=== PATIENT | female | born 1980 | race Caucasian/White ===

== ENCOUNTER 2020-02-16 16:11 | Inpatient (IN) | payer SELFPAY ==
[2020-02-16] VITALS (11 sets, daily range): BP systolic 138–290; BP diastolic 73–152; PULSE 86–139; RESP 12–19; TEMP 37.7; O2SAT 98–100; BMI 31.1
--- NOTE | 2020-02-16 16:35 | CT_ITS ---
CT head/brain wo con CLINICAL INFORMATION: Reason for Exam COYLE COMPARISON: No prior CT scan available for comparison. TECHNIQUE: Department standard protocol. This CT examination was performed using dose optimization techniques as appropriate, variously including the following: *Automated exposure control *Adjustment of mA and/or kV according to patient size (this includes techniques or standardized protocols for targeted exams where dose is matched to indication/reason for exam; i.e. extremities or head) *Use of iterative reconstruction technique DLP: 718 mGy-cm FINDINGS: CEREBRAL HEMISPHERES: There is no evidence of intra-axial or extra-axial mass, hemorrhage or acute infarct. BRAIN PARENCHYMA: Normal krueger-white matter differentiation. SUBDURAL SPACE: No bleed. BASAL GANGLIA AND PINEAL GLAND: Unremarkable VENTRICLES: Symmetric and normal in size. CEREBELLUM AND BRAINSTEM: No space-occupying mass, hemorrhage or acute infarct. CEREBELLOPONTINE ANGLES: No lesion found. ORBITS: No intraorbital mass. VESSELS: Unremarkable SKULL BASE: Unremarkable INCLUDED SINUSES AT SKULL BASE: Clear SKULL AND SKIN: No fracture or bone lesion found. CT/CT head/brain wo con IMPRESSION: No CT evidence of intracranial space-occupying mass, bleed or infarct.
[2020-02-16 16:41] LABS: MANUAL DIFF FLAG NO
[2020-02-16 16:42] LABS: Basophils Percent Auto 0.4 % (0-2); Eosinophils Absolute Auto 0.2 X10*3/uL (0.0-0.4); Hematocrit 43.2 % (37-47); Hemoglobin 13.9 g/dl (12.0-16.0); Imm Gran Abs Auto 0.04 X10*3/uL (0.00-0.03); Imm Gran Pct Auto 0.4 % (0.0-0.4); Lymphocytes Absolute Auto 2.5 X10*3/uL (1.2-4.9); Lymphocytes Percent Auto 24.5 % (20-40); Mean Corpuscular HGB Conc 32.2 g/dl (31.0-35.0); Mean Corpuscular Hemoglobin 26.3 pg (27.0-33.0); Mean Corpuscular Volume 81.7 fL (80-98); Mean Platelet Volume 8.7 fL (9.4-12.3); Monocytes Absolute Auto 0.6 X10*3/uL (0.1-1.2); Monocytes Percent Auto 6.2 % (2-11); Neutrophils Absolute Auto 6.8 X10*3/uL (2.0-8.3); Neutrophils Percent Auto 66.5 % (45-73); Platelet Count 400 X10*3/uL (160-400); Red Blood Count 5.29 X10*6/uL (4.20-5.50); Red Cell Distribution Width 14.3 % (11.0-16.0); White Blood Count 10.3 X10*3/uL (4.8-10.8)
[2020-02-16] MEDS: LORazepam 2 MG/ML VIAL 0.5 MG IVPUSH (16:44)
[2020-02-16] MEDS: Labetalol HCL 100 MG/20 ML VIAL 10 MG IVPUSH (16:44)
[2020-02-16] MEDS: 0.9 % Sodium Chloride 500 ML 1000 ML IV (16:45)
--- NOTE | 2020-02-16 16:46 | ED.GENADULT ---
HPI - General Adult General Chief complaint: Arrhythmia/Palpitations Stated complaint: hbp Time Seen by Provider: 02/16/20 16:34 Source: patient Mode of arrival: ambulatory Limitations: no limitations History of Present Illness HPI narrative: this 39-year-old female with history of hypertension in the past she was on multi agent therapy with lisinopril, amlodipine and metoprolol she reports to me that about a year ago she stopped taking it as she had been in between primary care and did not fill her prescriptions she is also in the meantime has been trying to lose a bit of weight and has been exercising she presents today with complaint of slight headache and feeling off states she checked her blood pressure at home was elevated prompting her to come to the emergency room. Aside from this slight headaches she denies any chest pain or shortness of breath. No recent illness. No weight gain or loss. No recent travel. No lower extremity pain. No vision changes. No dizziness. Location: head Radiation: non-radiation Severity: mild Quality: aching Pain Consistency: constant Relieving factors: none Exacerbating factors: none Treatments prior to arrival: none Related Data Home Medications Medication Instructions Recorded Confirmed Hair,Skin and Nails 1 tab PO DAILY 02/16/20 02/16/20 Allergies Allergy/AdvReac Type Severity Reaction Status Date / Time No Known Allergies Allergy Verified 02/16/20 16:34 Review of Systems Review of Systems: Constitutional: No Weight loss, No Fever, No Chills, No Night Sweats, No Fatigue, No Malaise ENT/Mouth: No Hearing loss, No Ear Pain, No Nasal Congestion, No Sinus Pain, No Hoarseness, No sore throat, No Rhinorrhea, No Swallowing Difficulty Eyes: No Eye Pain, No Swelling, No Redness, No Foreign Body, No Discharge, No Vision Changes Cardiovascular: No Chest Pain, No SOB, No Dyspnea on Exertion, No Orthopnea, No Edema, No Palpitations Respiratory: No Cough, No Sputum, No Wheezing, No Smoke Exposure, No Dyspnea Gastrointestinal: No Nausea, No Vomiting, No Diarrhea, No Constipation, No abdominal Pain, No Hematochezia, No Melena Genitourinary: no irregular bleeding, No Dysuria, No Urinary Frequency, No Hematuria, No Urinary Incontinence, No Urgency, No Flank Pain, No Urinary Flow Changes, No Hesitancy Musculoskeletal: No joint pain, No Myalgias, No Joint Swelling Skin: No Skin Lesions, No rash Neuro: No Weakness, No Numbness, No Paresthesias, No Loss of Consciousness, No Dizziness, + Headache Psych: No Social Issues Heme/Lymph: No Bruising, No Bleeding,No Lymphadenopathy Endocrine: No Polyuria, No Polydipsia, No Temperature Intolerance Yes all other systems are reviewed and are negative [facility] Past Medical History Attestation statement: The following information was validated with the patient. Medical History (Updated 02/16/20 @ 21:28 by Hai White NP) Hypertension Social History Social History Smoked in Last 30 Days: No Use of substances other than those prescribed or required for medical reasons: No Advance Directives: No Advance Directives Information Provided: Yes Physical Exam Vital Signs: Vital Signs: Vital Signs Temp Pulse Resp BP Pulse Ox 02/16/20 20:00 112 H 15 199/124 H 98 02/16/20 19:36 95 239/151 H 02/16/20 18:58 96 243/141 H 02/16/20 18:57 92 243/141 H 02/16/20 18:05 100 249/130 H 02/16/20 17:26 94 217/113 H 100 02/16/20 16:58 234/140 H 02/16/20 16:52 94 12 244/142 H 02/16/20 16:44 99 240/137 H 02/16/20 16:13 99.9 F 139 H 19 290/152 H 100 Body Mass Index 31.1 Reviewed Course Course Course Narrative: a 39-year-old female with history of hypertension presenting with hypertensive crisis blood pressure 290/152 HR 115- does report history of hypertension has not been taking her blood pressure medications for little over a year as she is in between primary care's and has been trying to diet and exercise. Feeling slight headache for past couple days and feeling off check her blood pressure high at home. On arrival no focal neurological deficits. She does report that she has slight white coat syndrome and this could be the reason why blood pressure is more elevated now. Will treat with gradual in fluids, lorazepam 0.5 mg IV and labetalol IV. Workup initiated. No recent illness. No signs or symptoms infectious pathology at this time. Reevaluation(s) Reevaluation #1: Blood pressure slightly however remains resistant given multiple rounds IV medications as well as p.o. clonidine. Attending consulted patient started on nicardipine drip. Will consult ICU. Have monitored patient very closely and have had multiple visits to bedside for cardiac monitoring, neurological monitoring and blood pressure management. Consultations Consultation #1: Intensive care Dr. Tavares Consultation #2: Hospitalist Dr. Laureano Medical Decision Making Differential Diagnosis Differential Diagnosis: Hypertensive crisis, intracranial bleed, electron injury, migraine COYLE Medical Records Medical records reviewed: Yes I reviewed the patient's medical records. Lab Data Result diagrams: 02/16/20 16:37 02/16/20 16:37 Labs: Lab Results 02/16/20 02/16/20 02/16/20 Range/Units 16:37 16:37 16:37 WBC 10.3 (4.8-10.8) X10*3/uL RBC 5.29 (4.20-5.50) X10*6/uL Hgb 13.9 (12.0-16.0) g/dl Hct 43.2 (37-47) % MCV 81.7 (80-98) fL MCH 26.3 L (27.0-33.0) pg MCHC 32.2 (31.0-35.0) g/dl RDW 14.3 (11.0-16.0) % Plt Count 400 (160-400) X10*3/uL MPV 8.7 L (9.4-12.3) fL Immature Gran % (Auto) 0.4 (0.0-0.4) % Neut % (Auto) 66.5 (45-73) % Lymph % (Auto) 24.5 (20-40) % [place] % (Auto) 6.2 (2-11) % Eos % (Auto) 2.0 (0-4) % Baso % (Auto) 0.4 (0-2) % Lymph # (Auto) 2.5 (1.2-4.9) X10*3/uL [place] # (Auto) 0.6 (0.1-1.2) X10*3/uL Eos # (Auto) 0.2 (0.0-0.4) X10*3/uL Baso # (Auto) 0.0 (0.0-0.2) X10*3/uL Abs Immat Gran (auto) 0.04 H (0.00-0.03) X10*3/uL Absolute Neuts (auto) 6.8 (2.0-8.3) X10*3/uL Absolute Nucleated RBC 0.000 (0.0-0.012) X10*3/uL Nucleated RBC % (auto) 0.0 (0.0-0.2) /100WBC Sodium 138 (135-145) mmol/L Potassium 4.1 (3.3-5.1) mmol/l Chloride 99 (96-108) mmol/L Carbon Dioxide 28 (22-29) mmol/L Anion Gap 15 (12-20) BUN 13 (9-16) mg/dL Creatinine 1.02 (0.5-1.4) mg/dL Estim Creat Clear Calc 68.5 Estimated GFR > 60 Random Glucose 127 H (60-115) mg/dL Calcium 9.9 (8.4-10.2) mg/dL Total Bilirubin 0.7 (0.0-1.0) mg/dL AST 23 (5-31) U/L ALT 29 (0-31) U/L Alkaline Phosphatase 57 (39-117) U/L Troponin I High Sens 8.1 (<3.5-17.0) ng/L Total Protein 8.1 H (6.5-8.0) g/dL Albumin 4.9 (3.5-5.0) g/dL Urine Color Urine Appearance Urine pH (5.0-8.0) Ur Specific [place] (1.005-1.025) Urine Protein (NEG-TRACE) MG/DL Urine Glucose (UA) (NEG) MG/DL Urine Ketones (NEG) MG/DL Urine Blood (NEG) Urine Nitrite (NEG) Ur Leukocyte Esterase (NEG) Urine RBC (0) /HPF Urine WBC (0-4) /HPF Ur Squamous Epith Cells /LPF Urine Bacteria /LPF Urine Test (NEGATIVE) Urine Opiates Screen (Not Detect) Ur Barbiturates Screen (Not Detect) Ur Phencyclidine Scrn (Not Detect) Ur Amphetamines Screen (Not Detect) U Benzodiazepines Scrn (Not Detect) Urine Cocaine Screen (Not Detect) U Marijuana (THC) Screen (Not Detect) 02/16/20 02/16/20 Range/Units 17:27 17:27 WBC (4.8-10.8) X10*3/uL RBC (4.20-5.50) X10*6/uL Hgb (12.0-16.0) g/dl Hct (37-47) % MCV (80-98) fL MCH (27.0-33.0) pg MCHC (31.0-35.0) g/dl RDW (11.0-16.0) % Plt Count (160-400) X10*3/uL MPV (9.4-12.3) fL Immature Gran % (Auto) (0.0-0.4) % Neut % (Auto) (45-73) % Lymph % (Auto) (20-40) % [place] % (Auto) (2-11) % Eos % (Auto) (0-4) % Baso % (Auto) (0-2) % Lymph # (Auto) (1.2-4.9) X10*3/uL [place] # (Auto) (0.1-1.2) X10*3/uL Eos # (Auto) (0.0-0.4) X10*3/uL Baso # (Auto) (0.0-0.2) X10*3/uL Abs Immat Gran (auto) (0.00-0.03) X10*3/uL Absolute Neuts (auto) (2.0-8.3) X10*3/uL Absolute Nucleated RBC (0.0-0.012) X10*3/uL Nucleated RBC % (auto) (0.0-0.2) /100WBC Sodium (135-145) mmol/L Potassium (3.3-5.1) mmol/l Chloride (96-108) mmol/L Carbon Dioxide (22-29) mmol/L Anion Gap (12-20) BUN (9-16) mg/dL Creatinine (0.5-1.4) mg/dL Estim Creat Clear Calc Estimated GFR Random Glucose (60-115) mg/dL Calcium (8.4-10.2) mg/dL Total Bilirubin (0.0-1.0) mg/dL AST (5-31) U/L ALT (0-31) U/L Alkaline Phosphatase (39-117) U/L Troponin I High Sens (<3.5-17.0) ng/L Total Protein (6.5-8.0) g/dL Albumin (3.5-5.0) g/dL Urine Color STRAW Urine Appearance CLEAR Urine pH 6.5 (5.0-8.0) Ur Specific [place] 1.010 (1.005-1.025) Urine Protein 2+ H (NEG-TRACE) MG/DL Urine Glucose (UA) NEG (NEG) MG/DL Urine Ketones NEG (NEG) MG/DL Urine Blood NEG (NEG) Urine Nitrite NEG (NEG) Ur Leukocyte Esterase NEG (NEG) Urine RBC 0 (0) /HPF Urine WBC 0 (0-4) /HPF Ur Squamous Epith Cells 1+ /LPF Urine Bacteria NONE /LPF Urine Test NEGATIVE (NEGATIVE) Urine Opiates Screen POSITIVE H (Not Detect) Ur Barbiturates Screen Not Detected (Not Detect) Ur Phencyclidine Scrn Not Detected (Not Detect) Ur Amphetamines Screen Not Detected (Not Detect) U Benzodiazepines Scrn Not Detected (Not Detect) Urine Cocaine Screen Not Detected (Not Detect) U Marijuana (THC) Screen Not Detected (Not Detect) Imaging Data CT scan - head: Attestation: I personally reviewed and interpreted this imaging study as follows: Radiologist's impression: Lurdes Patricia 39 F 1980 [place] [id number] [address] Scan Report Signed Patient: Lurdes PatriciaMR#: [id number] : 1980Acct:[id number] Age/Sex: 39 / FADM Date: 02/16/20 Loc: HO.ED Attending Dr: Ordering Physician: Hai White NP Date of Service: 02/16/20 Procedure(s): CT head/brain wo con Accession Number(s): [id number] cc: Hai White PARTS INTERPRETER~ CT head/brain wo con CLINICAL INFORMATION: Reason for Exam COYLE COMPARISON: No prior CT scan available for comparison. TECHNIQUE: Department standard protocol. This CT examination was performed using dose optimization techniques as appropriate, variously including the following: *Automated exposure control *Adjustment of mA and/or kV according to patient size (this includes techniques or standardized protocols for targeted exams where dose is matched to indication/reason for exam; i.e. extremities or head) *Use of iterative reconstruction technique DLP: 718 mGy-cm FINDINGS: CEREBRAL HEMISPHERES: There is no evidence of intra-axial or extra-axial mass, hemorrhage or acute infarct. BRAIN PARENCHYMA: Normal krueger-white matter differentiation. SUBDURAL SPACE: No bleed. BASAL GANGLIA AND PINEAL GLAND: Unremarkable VENTRICLES: Symmetric and normal in size. CEREBELLUM AND BRAINSTEM: No space-occupying mass, hemorrhage or acute infarct. CEREBELLOPONTINE ANGLES: No lesion found. ORBITS: No intraorbital mass. VESSELS: Unremarkable SKULL BASE: Unremarkable INCLUDED SINUSES AT SKULL BASE: Clear SKULL AND SKIN: No fracture or bone lesion found. CT/CT head/brain wo con IMPRESSION: No CT evidence of intracranial space-occupying mass, bleed or infarct. Dictated By:LUIGI GRIFFITH MD Signed By:<Electronically signed by LUIGI GRIFFITH MD in OV>02/16/20 1831 DD/ 1635 TD/TT: Mobile Device Engineer: ECG Data Interpretation: sinus tachycardia Heart rate 107 No ectopy Minimal voltage criteria for LVH No ST segment changes Critical Care Time Critical Care Time Critical Care Time: Yes Total Critical Care Time: 65 Attestation: hypertensive crisis symptomatic with slight headache requiring multiple visits to bedside including management with IV antihypertensive medications. Consultation with intensive care unit as well as hospitalist services. Discharge Plan Discharge Clinical Impression: Hypertensive crisis Patient Disposition: Admitted As Inpatient
[2020-02-16 17:16] LABS: Alanine Aminotransferase 29 U/L (0-31); Albumin Level 4.9 g/dL (3.5-5.0); Alkaline Phosphatase 57 U/L (39-117); Anion Gap 15 (12-20); Aspartate Amino Transferase 23 U/L (5-31); Bilirubin Total 0.7 mg/dL (0.0-1.0); Blood Urea Nitrogen 13 mg/dL (9-16); Calcium 9.9 mg/dL (8.4-10.2); Carbon Dioxide 28 mmol/L (22-29); Chloride 99 mmol/L (96-108); Creatinine Clr Calc Pharmacy 68.5; Estimated Glomerular Filt Rate > 60; Glucose Random 127 mg/dL (60-115); Potassium 4.1 mmol/l (3.3-5.1); Sodium 138 mmol/L (135-145); Total Protein 8.1 g/dL (6.5-8.0)
[2020-02-16 17:20] LABS: Troponin-I High Sensitivity 8.1 ng/L (<3.5-17.0)
[2020-02-16 17:40] LABS: Appearance Urine CLEAR; Color Urine STRAW; Glucose Urine UA NEG (NEG); Leukocyte Esterase Urine NEG (NEG); Nitrite Urine NEG (NEG); PH 6.5 (5.0-8.0); Urine Blood NEG (NEG); Urine Ketones NEG (NEG); Urine Protein 2+ MG/DL (NEG-TRACE)
[2020-02-16 17:44] LABS: UPreg QC Valid YES; Urine Pregnancy NEGATIVE (NEGATIVE)
[2020-02-16 17:51] LABS: RBC Urine 0 /HPF (0); Squamous Epithelial Cell Urine 1+ /LPF; WBC Urine 0 /HPF (0-4)
[2020-02-16 17:58] LABS: Amphetamine Screen Urine Not Detected (Not Detect); Barbiturates, Urine Not Detected (Not Detect); Benzodiazepines Screen Urine Not Detected (Not Detect); Cannabinoid Screen Urine Not Detected (Not Detect); Cocaine Screen Urine Not Detected (Not Detect); Opiate Screen Urine POSITIVE (Not Detect); Phencyclidine Screen Urine Not Detected (Not Detect)
[2020-02-16] MEDS: Labetalol HCL 100 MG/20 ML VIAL 20 MG IVPUSH (18:05)
[2020-02-16] MEDS: cloNIDine HCL 0.1 MG TABLET PO (18:57)
[2020-02-16] MEDS: Metoprolol Tartrate 10 MG in 0.9 % Sodium Chloride 50 ML 200 MG IV (18:58)
[2020-02-16] MEDS: hydrALAZINE HCl 20 MG/ML VIAL 10 MG IVPUSH (19:36)
[2020-02-16] MEDS: niCARdipine HCL 25 MG in 0.9 % Sodium Chloride 250 ML 52 MG IVCONT (19:51)
--- NOTE | 2020-02-16 21:05 | PC.NURSE ---
Patient's drip stopped by [employer] Supervisor because blood pressure dropped too low.
--- NOTE | 2020-02-16 21:38 | PC.NURSE ---
Hospitalist at bedside for evaluation.
--- NOTE | 2020-02-16 21:53 | P.HPIM_ITS ---
History of Present Illness Date of Service: 02/16/20 Chief Complaint: Headache this is a 39-year-old female who presents to the hospital with complaints of via tight headache all around her head that started today. Patient reports that she has history of hypertension but has not been able to take her medication for the past 1 years due to moving and being between physicians. Patient reports that she woke up this morning feeling a heavy sensation in her head with no change in vision, no chest pain no shortness of breath. She just felt off and decided to come to the ED. She otherwise denies any abdominal pain nausea or vomiting. No diarrhea or constipation. No weakness numbness or tingling, has no urinary symptoms and no lower extremity edema. On initial presentation to the ED blood pressure was 234/140. Patient received multiple doses of labetalol as well as hydralazine with clonidine with no success. Patient was temp early started on nicardipine drip with blood pressure dropping to the 140s systolic coulee. Patient's blood pressure currently in the 140 systolic off the nicardipine drip. Patient reports that her symptoms are significantly better at this time and her headache has now been resolved. Labs unremarkable head CT negative patient will be admitted for further management past medical history: Hypertension past surgical history: Tonsillectomy family history: Significant for hypertension and diabetes in both parents social history: Quit tobacco 4 months ago, denies alcohol or illicit drugs Review of Systems Review of Systems: Yes all other systems are reviewed and are negative [facility] Medical History Hypertension Social History Smoked in Last 30 Days: No Use of substances other than those prescribed or required for medical reasons: No Advance Directives: No Advance Directives Information Provided: Yes Meds Allergies Allergy/AdvReac Type Severity Reaction Status Date / Time No Known Allergies Allergy Verified 02/16/20 16:34 Home Medications Medication Instructions Recorded Confirmed Type Hair,Skin and Nails 1 tab PO DAILY 02/16/20 02/16/20 History Physical Exam Vital Signs and Narrative: Vital Signs: Last Vital Signs Temp 99.9 F 02/16/20 16:13 Pulse 112 H 02/16/20 20:00 Resp 15 02/16/20 20:00 BP 199/124 H 02/16/20 20:00 Pulse Ox 98 02/16/20 20:00 Body Mass Index 31.1 Const: General: cooperative and no acute distress Orientation/consciousness: patient oriented x3 Eyes: General: appearance normal, both eyes and all related structures Pupils: Equal, round and reactive pupils present Resp: Effort & Inspection: normal respiratory effort and able to speak in complete sentences Auscultation: clear to auscultation bilaterally Cardio: Rate: regular rate Rhythm: regular rhythm GI: Palpation (GI): Soft to palpation Auscultation: normal bowel sounds Skin: General skin exam: no rashes or lesions noted Neuro: General: patient oriented x3 Cranial nerves: Yes Equal, round and re active pupils present Cognition (Neuro): normal cognition Extrem: General: Yes normal to inspection and Yes no pedal edema Results Labs Labs: Laboratory Tests 02/16/20 02/16/20 02/16/20 16:37 16:37 16:37 WBC 10.3 RBC 5.29 Hgb 13.9 Hct 43.2 MCV 81.7 MCH 26.3 L MCHC 32.2 RDW 14.3 Plt Count 400 MPV 8.7 L Immature Gran % (Auto) 0.4 Neut % (Auto) 66.5 Lymph % (Auto) 24.5 [place] % (Auto) 6.2 Eos % (Auto) 2.0 Baso % (Auto) 0.4 Lymph # (Auto) 2.5 [place] # (Auto) 0.6 Eos # (Auto) 0.2 Baso # (Auto) 0.0 Abs Immat Gran (auto) 0.04 H Absolute Neuts (auto) 6.8 Absolute Nucleated RBC 0.000 Nucleated RBC % (auto) 0.0 Sodium 138 Potassium 4.1 Chloride 99 Carbon Dioxide 28 Anion Gap 15 BUN 13 Creatinine 1.02 Estim Creat Clear Calc 68.5 Estimated GFR > 60 Random Glucose 127 H Calcium 9.9 Total Bilirubin 0.7 AST 23 ALT 29 Alkaline Phosphatase 57 Troponin I High Sens 8.1 Total Protein 8.1 H Albumin 4.9 Urine Color Urine Appearance Urine pH Ur Specific [place] Urine Protein Urine Glucose (UA) Urine Ketones Urine Blood Urine Nitrite Ur Leukocyte Esterase Urine RBC Urine WBC Ur Squamous Epith Cells Urine Bacteria Urine Test Urine Opiates Screen Ur Barbiturates Screen Ur Phencyclidine Scrn Ur Amphetamines Screen U Benzodiazepines Scrn Urine Cocaine Screen U Marijuana (THC) Screen 02/16/20 02/16/20 17:27 17:27 WBC RBC Hgb Hct MCV MCH MCHC RDW Plt Count MPV Immature Gran % (Auto) Neut % (Auto) Lymph % (Auto) [place] % (Auto) Eos % (Auto) Baso % (Auto) Lymph # (Auto) [place] # (Auto) Eos # (Auto) Baso # (Auto) Abs Immat Gran (auto) Absolute Neuts (auto) Absolute Nucleated RBC Nucleated RBC % (auto) Sodium Potassium Chloride Carbon Dioxide Anion Gap BUN Creatinine Estim Creat Clear Calc Estimated GFR Random Glucose Calcium Total Bilirubin AST ALT Alkaline Phosphatase Troponin I High Sens Total Protein Albumin Urine Color STRAW Urine Appearance CLEAR Urine pH 6.5 Ur Specific [place] 1.010 Urine Protein 2+ H Urine Glucose (UA) NEG Urine Ketones NEG Urine Blood NEG Urine Nitrite NEG Ur Leukocyte Esterase NEG Urine RBC 0 Urine WBC 0 Ur Squamous Epith Cells 1+ Urine Bacteria NONE Urine Test NEGATIVE Urine Opiates Screen POSITIVE H Ur Barbiturates Screen Not Detected Ur Phencyclidine Scrn Not Detected Ur Amphetamines Screen Not Detected U Benzodiazepines Scrn Not Detected Urine Cocaine Screen Not Detected U Marijuana (THC) Screen Not Detected Assessment and Plan (1) Hypertensive crisis: Status: Acute this is a 39-year-old female with past medical history of hypertension who presents to the hospital with elevated blood pressure. # Hypertensive emergency/crisis - headache, with blood pressure systolic 230s/140s diastolically - no end-organ damage evident on labs - due to noncompliance in the setting of change of PCP as well as moving [place] - patient reports that she was under amlodipine as well as lisinopril about a year ago. - received multiple doses of labetalol (3), hydralazine, clonidine, and was started temp early on a nicardipine drip with blood pressure dropping significantly plan: - Hold nicardipine drip - resume her home medications of amlodipine 10mg and Lisinopril 20 mg - monitor for end-organ damage specially after blood pressure dropped significantly DVT prophylaxis: Early ambulation date of service 02/16/2020
[2020-02-16 22:33] LABS: SARS COV2 PCR INHOUSE NEGATIVE (Negative)
--- NOTE | 2020-02-16 23:34 | PC.NURSE ---
Floor called to give report. Informed by staff on telemetry that the Rn who is getting the patient is getting report because she just came in at 11:00.
[2020-02-17] VITALS (12 sets, daily range): BP systolic 153–240; BP diastolic 72–124; PULSE 80–144; RESP 16–19; TEMP 36.1–36.8; O2SAT 96–100; BMI 31.1
--- NOTE | 2020-02-17 | ECG_ITS ---
Test Reason : ARRYTHMIA Blood Pressure : / mmHG Vent. Rate : 107 BPM Atrial Rate : 107 BPM P-R Int : 168 ms QRS Dur : 100 ms QT Int : 356 ms P-R-T Axes : 069 014 052 degrees QTc Int : 475 ms Sinus tachycardia Minimal voltage criteria for LVH, may be normal variant Borderline ECG No previous ECGs available Referred By: Hai White Electronically Signed By:WILBERT CANADA MD
[2020-02-17] MEDS: Acetaminophen 325 MG TABLET 650 MG PO ×4 (00:19→19:23)
[2020-02-17] MEDS: 0.9 % Sodium Chloride Flush 3 ML SYRINGE IVFLUSH ×3 (00:22→18:17)
[2020-02-17] MEDS: amLODIPine Besylate 10 MG TABLET PO ×2 (01:03→08:18)
[2020-02-17] MEDS: lisinopriL 20 MG TABLET PO ×2 (01:03→08:18)
[2020-02-17] MEDS: Labetalol HCL 100 MG/20 ML VIAL 10 MG IVPUSH (01:04)
--- NOTE | 2020-02-17 03:48 | MHC.PIE ---
P- BP 240/124 upon arrival to unit from ED. Patient reports headache. I- MD updated. PO lisinipril, PO amlodipine, and IV labetalol given per order. E- BP 154/82. Patient reports no headache.
[2020-02-17 06:09] LABS: MANUAL DIFF FLAG NO
[2020-02-17 06:15] LABS: Basophils Percent Auto 0.4 % (0-2); Eosinophils Absolute Auto 0.1 X10*3/uL (0.0-0.4); Hematocrit 38.3 % (37-47); Hemoglobin 12.4 g/dl (12.0-16.0); Imm Gran Abs Auto 0.03 X10*3/uL (0.00-0.03); Imm Gran Pct Auto 0.3 % (0.0-0.4); Lymphocytes Absolute Auto 1.7 X10*3/uL (1.2-4.9); Lymphocytes Percent Auto 17.1 % (20-40); Mean Corpuscular HGB Conc 32.4 g/dl (31.0-35.0); Mean Corpuscular Hemoglobin 26.4 pg (27.0-33.0); Mean Corpuscular Volume 81.7 fL (80-98); Mean Platelet Volume 9.1 fL (9.4-12.3); Monocytes Absolute Auto 0.7 X10*3/uL (0.1-1.2); Monocytes Percent Auto 7.1 % (2-11); Neutrophils Absolute Auto 7.5 X10*3/uL (2.0-8.3); Neutrophils Percent Auto 74.1 % (45-73); Platelet Count 371 X10*3/uL (160-400); Red Blood Count 4.69 X10*6/uL (4.20-5.50); Red Cell Distribution Width 14.6 % (11.0-16.0); White Blood Count 10.2 X10*3/uL (4.8-10.8)
[2020-02-17 06:50] LABS: Anion Gap 15 (12-20); Blood Urea Nitrogen 11 mg/dL (9-16); Calcium 8.7 mg/dL (8.4-10.2); Carbon Dioxide 24 mmol/L (22-29); Chloride 102 mmol/L (96-108); Creatinine Clr Calc Pharmacy 83.1; Estimated Glomerular Filt Rate > 60; Glucose Random 168 mg/dL (60-115); Potassium 3.7 mmol/l (3.3-5.1); Sodium 137 mmol/L (135-145)
[2020-02-17] MEDS: hydrALAZINE HCl 20 MG/ML VIAL 10 MG IVPUSH (09:22)
--- NOTE | 2020-02-17 09:37 | MHC.CM.PN ---
dc plan home no sercveis pt has transportaion hpme when she is dcd
[2020-02-17] MEDS: LORazepam 1 MG TABLET PO (12:07)
[2020-02-17 12:44] LABS: Creatinine Urine 44.18 mg/dL; Total Protein Urine Random 9 mg/dL (<12)
[2020-02-17] MEDS: oxyCODONE HCl Immed Release 5 MG TABLET PO (16:55)
--- NOTE | 2020-02-17 17:29 | HO.PM.IMPN ---
Subjective Subjective Date of Service: 02/17/20 Interval History: seen and examined this AM reports no symptoms -- no COYLE, no CP, no SOB Physical Exam Vital Signs: Vital Signs: Vital Signs Temp Pulse Resp BP Pulse Ox 02/17/20 16:00 97.0 F 80 18 176/92 H 96 02/17/20 11:10 98 F 96 18 164/99 H 99 02/17/20 10:26 196/98 H 02/17/20 09:22 96 197/100 H 02/17/20 09:15 197/100 H 02/17/20 08:18 92 204/104 H 02/17/20 07:36 98.3 F 92 18 204/104 H 100 02/17/20 03:10 97.0 F 144 H 19 154/82 H 99 02/17/20 02:00 153/80 H 02/17/20 00:30 97.1 F 100 19 240/124 H 100 02/16/20 22:00 86 13 138/73 98 02/16/20 20:00 112 H 15 199/124 H 98 02/16/20 19:36 95 239/151 H 02/16/20 18:58 96 243/141 H 02/16/20 18:57 92 243/141 H 02/16/20 18:05 100 249/130 H Body Mass Index 31.1 General - no acute distress, appears comfortable Cardiovascular - regular rate and rhythm, S1-S2 Lungs - normal respiratory effort, clear to auscultation bilaterally, no wheezing Abdomen - soft, nontender, no rebound regarding Extremities - no edema bilaterally Neuro - awake and alert, no focal deficits Objective Data Current Medications Generic Name Dose Route Start Last Admin Trade Name Josq PRN Reason Stop Dose Admin Acetaminophen 650 mg 02/16/20 23:42 02/17/20 13:41 Acetaminophen 325 Mg Tablet PO 650 mg Q6H PRN Administration Pain, Mild (Pain Scale 1-3) Amlodipine Besylate 10 mg 02/17/20 00:50 02/17/20 08:18 Amlodipine Besylate 10 Mg Tablet PO 10 mg DAILY YURIDIA Administration Protocol Lisinopril 20 mg 02/17/20 00:45 02/17/20 08:18 Lisinopril 20 Mg Tablet PO 20 mg DAILY YURIDIA Administration Protocol Ondansetron HCl 4 mg 02/16/20 23:42 Ondansetron Hcl 4 Mg/2 Ml Vial IVPUSH Q8H PRN Nausea and Vomiting Oxycodone HCl 5 mg 02/17/20 16:43 02/17/20 16:55 Oxycodone Hcl Immed Release 5 Mg Tablet PO 5 mg Q6H PRN Administration Pain, Severe (Pain Scale 7-10) Pharmacy Consult 1 each 02/16/20 21:17 Consult Rx Perform Med Rec MISCELLANE ONCE PRN Consult order Sodium Chloride 3 ml 02/17/20 00:00 02/17/20 08:19 0.9 % Sodium Chloride Flush 3 Ml Syringe IVFLUSH 3 ml QSHIFT YURIDIA Administration Labs CBC & Chem 7: 02/17/20 05:32 02/17/20 05:32 Assessment and Plan (1) Hypertensive crisis: Status: Acute Assessment and Plan: This is a 39 yo F with a PMH of HTN -- off meds for 1+ years, along with a strongly FH of DM/HTN/CAD in both her mother and father (who are both , when in their 50s) who is admitted to the hospital for hypertensive crisis. 1. Hypertensive Urgency BP improved after multiple doses of antihypertensives now on PO lisinopril and norvasc, continue with the same for now -- may need uptitration / additional meds; check labs tomorrow will consult nephrology to see if secondary causes of htn needed 2. Elevated fasting glucose on AM chem check a1c with labs tomorrow Full Code DVT pptx -- low risk, early ambulation
[2020-02-18] VITALS (10 sets, daily range): BP systolic 154–210; BP diastolic 88–110; PULSE 77–118; RESP 18; TEMP 36.6–36.7; O2SAT 93–100
[2020-02-18] MEDS: oxyCODONE HCl Immed Release 5 MG TABLET PO (00:47)
[2020-02-18] MEDS: 0.9 % Sodium Chloride Flush 3 ML SYRINGE IVFLUSH ×2 (00:48→08:27)
[2020-02-18 07:09] LABS: Anion Gap 15 (12-20); Blood Urea Nitrogen 12 mg/dL (9-16); Calcium 8.9 mg/dL (8.4-10.2); Carbon Dioxide 24 mmol/L (22-29); Chloride 103 mmol/L (96-108); Creatinine Clr Calc Pharmacy 75.1; Estimated Glomerular Filt Rate > 60; Glucose Random 132 mg/dL (60-115); Potassium 4.3 mmol/l (3.3-5.1); Sodium 138 mmol/L (135-145)
[2020-02-18 07:11] LABS: Estimated Average Glucose 140 mg/dL; Hemoglobin A1c % 6.5 %
[2020-02-18] MEDS: amLODIPine Besylate 10 MG TABLET PO (08:27)
[2020-02-18] MEDS: lisinopriL 20 MG TABLET PO ×2 (08:28→14:03)
[2020-02-18] MEDS: Metoprolol Tartrate 50 MG TABLET PO (10:09)
--- NOTE | 2020-02-18 10:22 | CONS_ITS ---
DATE OF SERVICE: 02/17/2020 REASON FOR CONSULTATION: I was called to see this patient to assist in the management of uncontrolled hypertension. HISTORY OF PRESENT ILLNESS: To summarize, Lurdes is a pleasant 39-year-old woman with a history of hypertension, however, she has not been taking medication for a year. She was initially diagnosed with hypertension somewhere around the age of 33. She was given hydrochlorothiazide, metoprolol, and hydrochlorothiazide, at which time, the systolic blood pressure was somewhere between 130 and 140 mmHg. She is not sure if she had any workup for secondary hypertension. 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 She does not abuse any drugs. She does not abuse alcohol. She used to smoke, but she has quit smoking about 4 months ago. Against this background, she comes to the hospital because of headache and she was found to have a blood pressure of 230/140 mmHg. She was given intravenous nicardipine and the blood pressure dropped to 140s. During this process, she felt sweaty and the blood pressure dropped. At present, she is on oral medications. Her blood pressure is still suboptimal and hence this consultation. PAST MEDICAL HISTORY: Ongoing medical problems include history of longstanding hypertension. PAST SURGICAL HISTORY: Tonsillectomy. FAMILY HISTORY: Both her parents had hypertension. Father at the age of 50 and he had diabetes mellitus along with hypertension. The duration of hypertension was not known. Mother had hypertension and congestive heart failure and she at the age of 53. No known renal issues. 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 She used to smoke cigarettes and she quit smoking 4 months ago. No history of any alcohol abuse or drug abuse. She has children and she had normal deliveries and the 3rd was complicated by preeclampsia. REVIEW OF SYSTEMS: Positive for headache. No chest pain, nausea, or vomiting. No abdominal pain, diarrhea, or constipation. No neck pain, sweating. No palpitations. No edema. No polyuria or polydipsia. No foamy urine. No joint pain. No rash. No fever. No weight loss. All other systems were reviewed. PHYSICAL EXAMINATION: GENERAL: Today, Lurdes appears comfortable, not in any distress. VITAL SIGNS: Blood pressure was 190/90, afebrile, pulse was 84 per minute. HEENT: Pupils reacting to light. NECK: Supple. No JVD. LUNGS: Air entry equal. No rales. HEART: S1, S2 heard. No gallop. No rub. ABDOMEN: Soft, nontender. Bowel sounds heard. No bruit. NEUROLOGIC: Alert, awake, oriented. No asterixis. EXTREMITIES: No edema. No rash. No clubbing. No palpable lymphadenopathy. DIAGNOSTIC DATA: Head CT at the time of admission was unremarkable. Hemoglobin 12.4, platelet count 400 on admission. Potassium 4.1, CO2 of 28, serum creatinine 1.02 on admission, it is decreased to 0.8, random sugar 127 and 168. Total protein was elevated at 8.1. She tested positive for opiates, but cocaine was negative. Urinalysis showed 2+ protein by dipstick, no rbc's. IMPRESSION: 39-year-old woman with severe hypertension. Lurdes has had severe hypertension and she has not been taking her medications, therefore noncompliance could be playing a role; however, the onset of , therefore secondary causes should be evaluated. With history of smoking, this white woman fibromuscular dysplasia should be considered. She also had some proteinuria, therefore underlying glomerular disease should be considered, although this proteinuria may be secondary to uncontrolled hypertension. The urinary sediments are bland without any hematuria or RBC casts, which is comforting. The platelet counts are normal. She has no evidence of any hypokalemia or alkalosis. RECOMMENDATIONS: My recommendation will be to gradually lower the blood pressure for the next 24 hours. I would try to maintain systolic blood pressure around 140 to 160 mmHg and avoid dropping less than 140 mmHg. I would certainly avoid using rapidly acting intravenous agents. I agree with the current oral medications. We can add hydralazine 25 mg p.o. t.i.d. and increase the dose as needed. I have discussed with the family and will be happy to follow along with the team. Nash Hawk MD BPA/MODL / [id number]
--- NOTE | 2020-02-18 10:49 | PM.PNNEP ---
Subjective Subjective Interval history: Events noted Anxious wants to go home BP noted No new complaints Physical Exam Vital Signs: Vital Signs: Vital Signs Temp Pulse Resp BP Pulse Ox 02/18/20 10:09 118 H 184/88 H 02/18/20 09:22 101 H 184/88 H 02/18/20 08:28 101 H 186/91 H 02/18/20 08:27 101 H 186/91 H 02/18/20 07:53 98.0 F 101 H 18 186/91 H 93 02/18/20 04:00 97.8 F 81 18 154/90 H 98 02/17/20 23:19 97.0 F 94 19 157/84 H 100 02/17/20 19:47 97 F 85 16 178/72 H 99 02/17/20 16:00 97.0 F 80 18 176/92 H 96 02/17/20 11:10 98 F 96 18 164/99 H 99 Body Mass Index 31.1 Const: General: cooperative Orientation/consciousness: patient oriented x3 Eyes: General: appearance normal, both eyes and all related structures Resp: Auscultation: clear to auscultation bilaterally Cardio: Heart sounds: no murmurs and no rubs GI: Auscultation: normal bowel sounds Skin: General skin exam: no rashes or lesions noted Neuro: General: patient oriented x3 Assessment & Plan Assessment and plan (1) Hypertension: Problem details: Accelerated HTN No end organ damage Need to evaluate for secondary causes Consider CTA of renal arteries for possible FMD- Pt prefers to get this done as out patient Optimize oral medications Agree with current meds Can increase Lisinopril to 20 mg BID Status: Acute
--- NOTE | 2020-02-18 12:17 | MHC.CM.PN ---
PT DCD HOME NO SERVCEIS PT HAS OWN TRANSPORTAION HOME
--- NOTE | 2020-02-18 17:25 | PM.DS ---
DS: Providers Provider Date of admission: 02/16/20 21:51 Primary care physician: Unknown Physician Consults: 02/17/20 07:38 Consult to Nephrology Routine Consulting Provider: Nash Hawk Reason for consultation: refractory hypertension DS: Diagnosis Discharge Diagnosis (1) Hypertension: Status: Acute Problem details: Accelerated HTN No end organ damage Need to evaluate for secondary causes Consider CTA of renal arteries for possible FMD- Pt prefers to get this done as out patient Optimize oral medications Agree with current meds Can increase Lisinopril to 20 mg BID DS: Summary Hospital Course Hospital Course: 39-year-old female who presents to the hospital with complaints of via tight headache all around her head that started today. Patient reports that she has history of hypertension but has not been able to take her medication for the past 1 years due to moving and being between physicians. Patient reports that she woke up this morning feeling a heavy sensation in her head with no change in vision, no chest pain no shortness of breath. She just felt off and decided to come to the ED. She otherwise denies any abdominal pain nausea or vomiting. No diarrhea or constipation. No weakness numbness or tingling, has no urinary symptoms and no lower extremity edema. On initial presentation to the ED blood pressure was 234/140. Patient received multiple doses of labetalol as well as hydralazine with clonidine with no success. Patient was temp early started on nicardipine drip with blood pressure dropping to the 140s systolic . Patient's blood pressure currently in the 140 systolic off the nicardipine drip. Patient reports that her symptoms are significantly better at this time and her headache has now been resolved. Labs unremarkable head CT negative Hypertensive Urgency patient blood pressure remains elevated despite 3 new antihypertensive medication including Norvasc, lisinopril and metoprolol but patient is eager to be discharged home therefore dose of lisinopril has been increased to 20 mg twice daily she has been started on metoprolol 50 mg twice daily patient feels that her blood pressure will improve at home and she feels anxious in the hospital , and if she is not discharge she is going to leave AMA therefore patient is being discharged on current medication with strong recommendations to have outpatient follow-up with Dr. Hawk in 1 week time and also to arrange for outpatient primary care physician follow-up patient has been instructed to return to hospital with any recurrent symptoms of headache chest pain lightheadedness or dizziness. Elevated fasting glucose And hemoglobin A1c of 6.5 patient has been recommended to follow diabetic diet. Time Spent with Patient Time attestation: Total time spent providing and/or coordinating discharge services: Physical Exam Vital Signs: Vital Signs: Vital Signs Temp Pulse Resp BP Pulse Ox 02/18/20 14:03 83 194/102 H 02/18/20 13:06 83 194/102 H 02/18/20 12:24 81 210/110 H 02/18/20 11:11 97.8 F 77 18 185/100 H 100 02/18/20 10:09 118 H 184/88 H 02/18/20 09:22 101 H 184/88 H 02/18/20 08:28 101 H 186/91 H 02/18/20 08:27 101 H 186/91 H 02/18/20 07:53 98.0 F 101 H 18 186/91 H 93 02/18/20 04:00 97.8 F 81 18 154/90 H 98 02/17/20 23:19 97.0 F 94 19 157/84 H 100 02/17/20 19:47 97 F 85 16 178/72 H 99 Body Mass Index 31.1 General patient resting comfortably in no acute distress. Neck is supple no JVD. CVS regular rate rhythm, Respiratory lungs clear to auscultation, no respiratory distress, no wheeze, no rhonchi. Gastrointestinal abdomen soft, nontender, bowel sounds audible, no no guarding , no rigidity. Extremities no clubbing cyanosis or edema. Neuro nonfocal patient moving all 4 extremity speech clear. Skin no rash DS: Data Data Completed and Pending Labs on day of discharge: Labs from last 24 hours 02/18/20 02/18/20 05:40 05:40 Sodium 138 Potassium 4.3 Chloride 103 Carbon Dioxide 24 Anion Gap 15 BUN 12 Creatinine 0.93 Estim Creat Clear Calc 75.1 Estimated GFR > 60 Random Glucose 132 H Estimat Average Glucose 140 Hemoglobin A1c % 6.5 Calcium 8.9 Discharge Plan Discharge Patient Disposition: Home, Self-Care Referrals: Physician,Unknown [Primary Care Provider] - Discharge Medications: New lisinopril 20 mg Tablet 20 mg PO BID Qty: 60 RF: 0 amlodipine 10 mg Tablet 10 mg PO DAILY Qty: 30 RF: 0 metoprolol tartrate 50 mg Tablet 50 mg PO BID Qty: 60 RF: 0 Continued Hair,Skin and Nails 1 tab PO DAILY RF: 0 Discharge Orders: Discharge Order (Routine); Ordered 02/18/20 Ordered By: Jasmyn Barney Diet: diabetic diet Activity on Discharge: As tolerated Discharge Date/Time: 02/18/20 16:01 Visit Report Forms: Patient Portal Discharge page Care Plan Goals: As per discharge plan Health Concerns: arrange for outpatient follow-up with PCP and Nephrology Plan of Treatment: cayla all medication as prescribed and follow-up with PCP and Nephrology.
== END 2020-02-18 16:01 | disposition home or self-care (01) | DRG 305 ==
LOC: HO.ED 22:19 → HO.IMC 22:53
PROVIDERS: Family Medicine; Internal Medicine Hypertension Specialist; Nurse Practitioner Primary Care; Admitting Provider Internal Medicine; Emergency Provider Emergency Medicine; Visit Provider Hospitalist
DX: I16.9 Hypertensive crisis, unspecified (principal); I10 Essential (primary) hypertension; Z20.828 Contact with and (suspected) exposure to other viral communicable diseases; Z91.14 Patient's other noncompliance with medication regimen; Z87.891 Personal history of nicotine dependence
CPT/HCPCS: 36415; 70450; 80048; 80053; 80307; 81001; 81025; 83036; 84156; 84484; 85025; 87635; 93005; 96365; 96375; 96376; 99225; 99285; 99291; J2060